=== PATIENT | male | born 1955 | race Caucasian/White ===

== ENCOUNTER 2018-11-13 15:32 | Inpatient (IN) | payer OTHER ==
[2018-11-13] MEDS ORDERED: Aspirin 325 MG TAB ONE (15:52)
[2018-11-13] MEDS ORDERED: Diltiazem 125 MG/25 ML ONE (15:52)
[2018-11-13 16:01] LABS: #Basophils 0.1 thou/uL (0.0-0.2); #Eosinphils 0.5 thou/uL (0.0-0.7); #Lymphocytes 1.5 thou/uL (1.20-3.40); #Monocytes 0.8 thou/uL (0.11-0.59); #Neutrophils 6.3 thou/uL (1.40-6.50); %Basophils 0.7 % (0.0-1.0); %Eosinophils 5.4 % (0.0-10.0); %Lymphocytes 15.9 % (21.0-51.0); %Monocytes 9.2 % (0.0-10.0); %Neutrophils 68.9 % (42.0-75.0); Hemoglobin 15.9 g/dL (14.0-18.0); Mean Corpuscular HGB CONC 32.7 g/dL (32.0-36.0); Mean Corpuscular Hemoglobin 29.8 pg (27.0-31.0); Mean Corpuscular Volume 91.1 fL (78.0-98.0); Platelet Count 294 thou/uL (130-400); RBC Distribution Width 13.7 % (11.5-14.5); Red Blood Cell (RBC) Count 5.34 mill/uL (4.70-6.10); White Blood Cell (WBC) Count 9.2 thou/uL (4.8-10.8)
--- NOTE | 2018-11-13 16:09 | RAD ---
Chest one view HISTORY: Chest pain. FINDINGS: No comparison. Cardiac silhouette is magnified by projection. Pulmonary vasculature is unre markable. Mediastinum is midline. No confluent airspace consolidation or evidence of pneumothorax. IMPRESSION: No active cardiopulmonary abnormalities are demonstrated.
[2018-11-13 16:22] LABS: ALT (SGPT) 26 U/L (8-55); AST (SGOT) 23 U/L (5-34); Alkaline Phosphatase 98 U/L (40-150); Anion Gap 14 mmol/L (10-20); BUN (Urea Nitrogen) 21 mg/dL (8.4-25.7); Bilirubin, Total 0.6 mg/dL (0.2-1.2); Calc. Creatinine Clearance 0 mL/min (70-130); Calcium 9.5 mg/dL (7.8-10.44); Carbon Dioxide 21 mmol/L (23-31); Chloride 106 mmol/L (98-107); Estimated GFR-MDRD 59; Globulin 3.4 g/dL (2.4-3.5); Glucose 153 mg/dL (80-115); Lipase 26 U/L (8-78); Magnesium 1.9 mg/dL (1.6-2.6); Potassium 4.4 mmol/L (3.5-5.1); Protein, Total 7.4 g/dL (5.8-8.1); Sodium 137 mmol/L (136-145)
[2018-11-13] MEDS ORDERED: Acetaminophen 500 MG TAB ONE (17:48)
[2018-11-13 18:29] LABS: INR-International Normal Ratio 2.2; Prothrombin Time 24.5 SEC (12.0-14.7)
[2018-11-13] MEDS ORDERED: Senokot S 8.6-50 MG TAB PO PRN (18:29)
[2018-11-13] MEDS ORDERED: HYDROcodone/Acetaminophen 5/325 mg Tablet PO PRN (18:29)
[2018-11-13] MEDS ORDERED: Acetaminophen 325 MG TAB PO PRN (18:29)
[2018-11-13 18:30] LABS: PTT 40.1 SEC (22.9-36.1)
[2018-11-13 19:21] LABS: Troponin I Less than 0.010 ng/mL (< 0.028)
[2018-11-13] MEDS ORDERED: Diltiazem 125 MG in Sodium Chloride 0.9% 100 ML IVPB SCH (20:15)
[2018-11-13 20:18] VITALS: BMI 31.4
[2018-11-13] MEDS: Famotidine 20 MG TAB PO SCH (20:45)
[2018-11-13 22:10] LABS: Troponin I 0.013 ng/mL (< 0.028)
--- NOTE | 2018-11-14 01:48 | HP ---
CHIEF COMPLAINT: Chest pain. HISTORY OF PRESENT ILLNESS: Mr. Santana is a very pleasant 62-year-old male who presented to the emergency room today after he has been noticing worsening chest pain over the last 3 days, reports most severe in the left upper chest, described as crushing. Reports some dyspnea on exertion. Also has had intermittent diaphoresis, palpitations. Denied anything exacerbated or relieved it. Does have a pertinent past medical history with angina, myocardial infarction x2. He has had 3 stents placed in 2018. Also pertinent is hypertension, hyperlipidemia, diabetes. The patient is on Coumadin and Plavix. During ED evaluation, the patient was found to be in atrial fibrillation with RVR, was given a bolus of diltiazem and subsequently placed on a Cardizem drip. Still has a variable rate anywhere from 90 to 140. The patient was subsequently admitted to the telemetry unit for further management. The patient was also given aspirin in the emergency room. PAST MEDICAL HISTORY: Angina, myocardial infarction x2, stent placement x3, hypothyroidism, diabetes, hypertension, elevated PSA. Reports that he has an appointment next week again with the urologist who is going to do a biopsy. States that at that point, he was supposed to get trend off his Coumadin and start Lovenox. PAST SURGICAL HISTORY: Cardiac stents x3. PSYCHIATRIC HISTORY: None. SOCIAL HISTORY: Drinks socially every week. Denies any drug use. Has no smoking history. REVIEW OF SYSTEMS: The patient reports chest pain. Reports diaphoresis. Reports palpitations. Reports shortness of breath. All other symptoms are reviewed and are negative unless mentioned in the HPI. PHYSICAL EXAMINATION: VITAL SIGNS: Blood pressure 120/78, pulse is 122, respirations 15, pulse ox is 97% on room air. Pulse, atrial fibrillation with RVR. CONSTITUTIONAL: He is alert and oriented to person, place, and time. He is nontoxic appearing. HEENT: Head is atraumatic and normocephalic. Eyes; eyelids are normal to inspection. Pupils equally round and reactive to light. ENT; mouth exam is normal. Mucous membranes are moist. NECK: Normal range of motion. Trachea is midline. RESPIRATORY/CHEST: Breath sounds are clear. No signs of respiratory distress. CARDIOVASCULAR: Tachycardic. Cardiac rhythm, atrial fibrillation with rapid ventricular response. ABDOMEN: Nontender. Bowel sounds are heard. BACK: Normal to inspection. Normal range of motion. EXTREMITIES: Upper extremity, normal range of motion. Normal to inspection. Motor strength is normal. Radial pulses are equal. Lower extremity, inspection is normal, normal range of motion. Motor strength is normal. Pedal pulses equal bilaterally. NEURO: The patient is oriented to person, place, and time. Speech is normal. SKIN: Warm and dry, normal in color. PSYCH: Has a normal affect. IMAGING DATA: EKG in the ER shows; 1. Atrial fibrillation with RVR, left anterior fascicular block. ST segments and T-waves are normal, rate per minute 167. 2. Normal sinus rhythm, beats per minute 93, premature atrial complexes, again left anterior fascicular block. 3. Shows atrial fibrillation with a rapid ventricular response, beats per minute 119 in bigeminy. Again, left anterior fascicular block. ST segments and T-waves are normal. Chest x-ray shows cardiomegaly. PERTINENT LABORATORY DATA: White blood cell count 9.2, hemoglobin 15.9, hematocrit 48.7, and platelet count is 294. PT is 24.5, INR is 2.2, and APTT is 40.1. Chemistry; sodium is 137, potassium 4.4, chloride 106, carbon dioxide is 21, gap is 14, BUN is 21, creatinine is 1.24, estimated GFR is 59, glucose is 153, calcium is 9.5, magnesium 1.9. Liver enzymes are unremarkable. BNP is 166. Troponins x3 are undetectable. Lipase is 26. ASSESSMENT AND PLAN: 1. Atrial fibrillation with rapid ventricular response and chest pain. We will continue the patient on a Cardizem drip and titrate. We will consult Cardiology. 2. Hypertension. We will continue home medication. We will trend. Add p.r.n. medication as needed. 3. Diabetes type 2. We will add a sliding scale insulin while hospitalized. We will restart home medications. Check Accu-Cheks a.c. and at bedtime. Chronic anticoagulation with aspirin, Plavix, Coumadin. We will check PT, INR daily. We will confer to Cardiology for assistance with continuation or medication regimen change. 4. Gastrointestinal prophylaxis will be started. 5. Hospital course will be dependent on clinical findings. Job ID: [id number]
[2018-11-14] MEDS ORDERED: Warfarin Sodium 2 MG TAB PO SCH ×2 (02:00→17:00)
[2018-11-14 05:06] LABS: INR-International Normal Ratio 2.2; PTT 42.4 SEC (22.9-36.1); Prothrombin Time 24.6 SEC (12.0-14.7)
[2018-11-14 05:13] LABS: #Basophils 0.1 thou/uL (0.0-0.2); #Eosinphils 0.4 thou/uL (0.0-0.7); #Lymphocytes 1.3 thou/uL (1.20-3.40); #Monocytes 0.8 thou/uL (0.11-0.59); #Neutrophils 5.4 thou/uL (1.40-6.50); %Basophils 0.9 % (0.0-1.0); %Eosinophils 5.4 % (0.0-10.0); %Lymphocytes 16.2 % (21.0-51.0); %Monocytes 9.9 % (0.0-10.0); %Neutrophils 67.7 % (42.0-75.0); Hemoglobin 14.6 g/dL (14.0-18.0); Mean Corpuscular HGB CONC 32.9 g/dL (32.0-36.0); Mean Corpuscular Hemoglobin 30.8 pg (27.0-31.0); Mean Corpuscular Volume 93.6 fL (78.0-98.0); Platelet Count 259 thou/uL (130-400); RBC Distribution Width 13.6 % (11.5-14.5); Red Blood Cell (RBC) Count 4.76 mill/uL (4.70-6.10); White Blood Cell (WBC) Count 7.9 thou/uL (4.8-10.8)
[2018-11-14 05:21] LABS: ALT (SGPT) 24 U/L (8-55); AST (SGOT) 17 U/L (5-34); Albumin 3.5 g/dL (3.4-4.8); Alkaline Phosphatase 86 U/L (40-150); Anion Gap 11 mmol/L (10-20); BUN (Urea Nitrogen) 18 mg/dL (8.4-25.7); Bilirubin, Total 0.8 mg/dL (0.2-1.2); Calc. Creatinine Clearance 142 mL/min (70-130); Calcium 8.6 mg/dL (7.8-10.44); Carbon Dioxide 23 mmol/L (23-31); Chloride 107 mmol/L (98-107); Estimated GFR-MDRD 82; Globulin 2.9 g/dL (2.4-3.5); Glucose 86 mg/dL (80-115); Potassium 3.8 mmol/L (3.5-5.1); Protein, Total 6.4 g/dL (5.8-8.1); Sodium 137 mmol/L (136-145)
[2018-11-14] MEDS ORDERED: COBAMAMIDE SL SCH (09:00)
[2018-11-14] MEDS ORDERED: CYANOCOBALAMIN SL SCH (09:00)
[2018-11-14 09:18] LABS: Hemoglobin 14.8 g/dL (14.0-18.0); Platelet Count 270 thou/uL (130-400)
[2018-11-14] MEDS: Aspirin 81 mg Enteric Coated Tablet PO SCH (09:41)
[2018-11-14] MEDS: Clopidogrel Bisulfate 75 MG TAB PO SCH (09:45)
[2018-11-14] MEDS: Famotidine 20 MG TAB PO SCH ×2 (09:45→21:00)
--- NOTE | 2018-11-14 15:44 | PDOC.PN ---
- Subjective Encounter Start Date: 11/14/18 Encounter Start Time: 15:42 Mr. Santana was seen in follow-up of chest pain and new onset AFIB. He says he feels much better. He denies chest pain , shortness of breath, or any dizziness or lightheadedness. He wants to go home and see his own Tank Bottom Assembler. - Objective MAR Reviewed: Yes Vital Signs & Weight: Vital Signs (12 hours) Temp Pulse Resp BP Pulse Ox 11/14/18 12:00 97.5 F L 58 L 16 99/67 11/14/18 08:00 96.8 F L 94 18 133/78 99 11/14/18 07:00 99 11/14/18 04:00 97.4 F L 60 18 104/57 L 93 L Weight Weight 272 lb 8 oz I&O: 11/13/18 11/14/18 11/15/18 06:59 06:59 06:59 Intake Total 525 Output Total 800 Balance -275 Result Diagrams: 11/14/18 08:58 11/14/18 04:05 Additional Labs: Accuchecks 11/14/18 11/14/18 11/13/18 11:40 05:16 20:09 POC Glucose 139 H 96 109 Phys Exam - Physical Examination HEENT: PERRLA Respiratory: no wheezing, no rales, no rhonchi, clear to auscultation bilateral Cardiovascular: no significant murmur, no rub, irregular Gastrointestinal: soft, non-tender, no distention, positive bowel sounds Musculoskeletal: no edema, pulses present Dx/Plan (1) New onset a-fib Code(s): I48.91 - UNSPECIFIED ATRIAL FIBRILLATION Status: Acute (2) Coronary artery disease Code(s): I25.10 - ATHSCL HEART DISEASE OF [place] CORONARY ARTERY W/O ANG PCTRS Status: Chronic (3) Hypertension Code(s): I10 - ESSENTIAL (PRIMARY) HYPERTENSION Status: Chronic (4) Diabetes mellitus type 2 in obese Code(s): E11.69 - TYPE 2 DIABETES MELLITUS WITH OTHER SPECIFIED COMPLICATION; E66.9 - OBESITY, UNSPECIFIED Status: Chronic - Plan * New Onset AFIB- his heart rate is controlled but variable, but he remains in AFIB. He is already on coumadin and therapeutic due to a previous DVT. * Continue Metoprolol, and await Cardiology input * DM- blood glucose is stable * HTN- blood pressure is low normal
[2018-11-14] MEDS ORDERED: Atorvastatin Calcium 40 MG TAB PO SCH (21:00)
--- NOTE | 2018-11-14 23:47 | CON ---
DATE OF CONSULTATION: 11/14/2018 INDICATION FOR CONSULTATION: This is a 62-year-old gentleman with history of coronary artery disease, who reported to the emergency room complaining of chest pain, shortness of breath and was found to have what was thought to be atrial fibrillation on my evaluation. The EKG appears that the patient was in sinus rhythm with frequent PACs and has 1 short run at least documented on the EKG of what appeared to be atrial tachycardia. I do not see any clear indication of any atrial fibrillation. Since being on the floor, he has had no atrial fibrillation. He has continued to have a sinus rhythm with frequent PACs. He does not have any previous history of atrial fibrillation in the past. He is on Coumadin, however, for history of DVTs. He is also on Plavix and aspirin due to coronary artery disease for which he has received recent stents. He has been doing quite well for the last several days, but he has complained of some dizziness occasionally. He has had some chest discomfort and also he has some chest tightness which he describes and also some neck pain and jaw pain with some shortness of breath. He said this is somewhat different than the pain he had in the past with his previous myocardial infarction. 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 Then again in April 2018, he was seen in [place] by the long wall mining machine tender, so he continues to see there and was found to have in-stent thrombosis and underwent repeat angioplasty and he had 2 stents placed in [place] at the same vessel and then had a third stent placed in [place]. He also had a transesophageal echocardiogram performed in August 2018 and was told that his left ventricular systolic function had remained stable. I do not have those records, however. At this time, he denies any significant chest discomfort and was questioning when he could go home. He plans to follow up with his long wall mining machine tender in [place]. His heart rate has been ranging anywhere from the between 90s to 130s, but appears to be as noted sinus rhythm with frequent PACs and an episode of atrial tachycardia. At this time, he remains asymptomatic. His cardiac enzymes are negative. EKG did not show any acute ST-segment changes. He does have a left anterior fascicular block and decreased R-wave progression in V1 through V3, which may be associated with previous myocardial infarction. PAST MEDICAL HISTORY: Significant for coronary artery disease, myocardial infarction, angioplasty and stent placed in 2017 and again in 2018 reportedly to the left anterior descending artery on both events, hypothyroidism, diabetes. He has prostate hypertrophy with elevated PSA. He has hypertension. He has history of tobacco abuse. He still smokes 4 to 5 cigarettes a week. He has been drinking increased tea as well as some alcohol recently which may have triggered the irregular heart rate, palpitations. He also has been having at least 1 or 2 drinks a day for the last couple of weeks. He denies any other significant stressful situations, but does continue to smoke. REVIEW OF SYSTEMS: 12-point review of systems is unremarkable except what is noted in the history of present illness. He has been told that he does have a right lower lobe abnormality on the chest x-ray and is being followed. He has also had a DVT in the right lower extremity, for which he has continued on Coumadin since he had a repeat DVT in the same leg. PRESENT MEDICATIONS: He was given diltiazem, this has since been discontinued; he was on aspirin 81 mg a day; atorvastatin 40 mg a day; Plavix 75 mg a day; Pepcid 20 mg b.i.d.; metoprolol succinate 25 mg daily; pantoprazole 40 mg daily; he was taking his Coumadin to keep an INR between 2 and 3, the INR was stable; Tylenol as needed; hydrocodone as needed. He also was taking fish oil, omega-3 as well as he was taking Symbicort. He was on Jardiance, the plan is to stop taking this medicine due to the expense. He was on repaglinide 2 mg tablets one 3 times a day. ALLERGIES: NONE. LABORATORY DATA: Shows his INR to be 2.2. His sodium is 137, potassium 4.4. Glucose was 153, repeat was 109. BNP was 166. Cardiac enzymes are negative x3. Hemoglobin is 14.8, WBC is 7.9, platelet count is 270,000. IMPRESSION: 1. A 62-year-old gentleman with a history of chest pain and coronary artery disease. Enzymes are negative. The patient has been having discomfort for several days. This maybe related to palpitations. It is possible he did have some atrial fibrillation, but I do not see that documentation. At this time, I would suggest we start him on a beta miky, maybe increase the dose and could add low dose of diltiazem if he had atrial fibrillation, converted back to sinus rhythm and he has remained in sinus rhythm. He wishes to follow up with his long wall mining machine tender in [place]. If he remains stable, no further chest pain and no further arrhythmias; then I would suggest he follow up with his long wall mining machine tender in the next week in [place] should he have any further events while he is here, and I would suggest he undergo a repeat cardiac catheterization as a definitive tool to rule out evidence of in-stent restenoses yet again. He apparently did not have any other coronary artery disease in any other vessels as per his history or at least as what he tells me. He only has one vessel that was involved and that was the left anterior descending artery. 2. History of deep venous thrombosis. He is to continue on the Coumadin until he needs to undergo a surgical procedure for his prostate and apparently he need to undergo a biopsy. He can certainly be transitioned over to Lovenox in the interim and then go back to the Coumadin once the procedure is over and would have a bridge with Lovenox until he is able to have anticoagulation therapeutic again. 3. History of diabetes. Blood sugar is reasonably controlled. We will continue the same medications unless he speaks with his storeroom keeper about changing some of the more expensive medications. 4. History of deep venous thrombosis. He will continue on his Coumadin as noted above. 5. Dyslipidemia. He will continue with his Lipitor. 6. History of tobacco abuse. I suggest that he stop smoking altogether. 7. History of alcohol use at this time. He needs also to stop his alcohol intake as well as decrease on his caffeine intake from tea. He has been drinking 4 to 5 glasses of tea a day and apparently this is home brewed tea and is somewhat stronger than the usual uinu-aww-jkffliw tea or the restaurant-type tea. 8. Benign prostatic hypertrophy with an elevated PSA. He is to see his urologist in the near future for a biopsy. At this time, from a cardiac standpoint, he appears to be relatively stable, so I would suggest we just continue his same medications, but also add diltiazem in order to prevent further arrhythmias. He appeared to have frequent PACs and I did notice a short run of what appeared to be atrial tachycardia. He may have had one episode of atrial fibrillation while on telemetry. I do see a rhythm strip. It does appear to be atrial fibrillation of approximately 120 on November 14, which converted back to sinus rhythm. I did explain to him that one of reasons he could be having atrial fibrillation was that it could be due to underlying coronary artery disease, and he will need to see his long wall mining machine tender as soon as possible and may need to either undergo stress testing or repeat cardiac catheterization, most likely repeat cardiac catheterization would be the best method to determine whether or not he has had any underlying ischemia as a possible cause of the atrial fibrillation. We will be more than happy to continue to follow the patient with you, but if he remains stable overnight, then he certainly could follow up with his long wall mining machine tender in [place] as this is what he wishes to do. Job ID: [id number]
[2018-11-15 05:39] LABS: #Basophils 0.1 thou/uL (0.0-0.2); #Eosinphils 0.5 thou/uL (0.0-0.7); #Lymphocytes 1.2 thou/uL (1.20-3.40); #Monocytes 0.8 thou/uL (0.11-0.59); #Neutrophils 5.6 thou/uL (1.40-6.50); %Basophils 0.9 % (0.0-1.0); %Eosinophils 6.2 % (0.0-10.0); %Lymphocytes 14.5 % (21.0-51.0); %Monocytes 9.8 % (0.0-10.0); %Neutrophils 68.7 % (42.0-75.0); Hemoglobin 14.8 g/dL (14.0-18.0); Mean Corpuscular HGB CONC 32.9 g/dL (32.0-36.0); Mean Corpuscular Hemoglobin 30.9 pg (27.0-31.0); Mean Corpuscular Volume 93.8 fL (78.0-98.0); Mean Platelet Volume 7.2 fL (7.4-10.4); Platelet Count 267 thou/uL (130-400); RBC Distribution Width 13.7 % (11.5-14.5); White Blood Cell (WBC) Count 8.2 thou/uL (4.8-10.8)
[2018-11-15 05:44] LABS: INR-International Normal Ratio 2.4; PTT 43.1 SEC (22.9-36.1); Prothrombin Time 26.3 SEC (12.0-14.7)
[2018-11-15 05:53] LABS: ALT (SGPT) 19 U/L (8-55); AST (SGOT) 16 U/L (5-34); Albumin 3.6 g/dL (3.4-4.8); Alkaline Phosphatase 89 U/L (40-150); Anion Gap 10 mmol/L (10-20); BUN (Urea Nitrogen) 19 mg/dL (8.4-25.7); Bilirubin, Total 0.5 mg/dL (0.2-1.2); Calc. Creatinine Clearance 134 mL/min (70-130); Calcium 8.9 mg/dL (7.8-10.44); Carbon Dioxide 25 mmol/L (23-31); Chloride 106 mmol/L (98-107); Estimated GFR-MDRD 76; Globulin 3.1 g/dL (2.4-3.5); Glucose 99 mg/dL (80-115); Potassium 3.9 mmol/L (3.5-5.1); Protein, Total 6.7 g/dL (5.8-8.1); Sodium 137 mmol/L (136-145)
[2018-11-15] MEDS: Famotidine 20 MG TAB PO SCH (08:47)
[2018-11-15] MEDS: Aspirin 81 mg Enteric Coated Tablet PO SCH (08:48)
[2018-11-15] MEDS: Clopidogrel Bisulfate 75 MG TAB PO SCH (08:48)
--- NOTE | 2018-11-15 09:44 | PDOC.PN ---
- Subjective Encounter Start Date: 11/15/18 Encounter Start Time: 11:20 Subjective: Patient with no more chest pain. No significant runs of Afib overnight, -: just a few nonsustained PACs. Has appointment with his [employer] -: gear inspector scheduled for tomorrow. - Objective MAR Reviewed: Yes Vital Signs & Weight: Vital Signs (12 hours) Temp Pulse Resp BP Pulse Ox 11/15/18 08:00 97.2 F L 95 18 113/70 95 11/15/18 04:00 98.9 F 64 18 124/68 94 L Weight Weight 272 lb 8 oz I&O: 11/14/18 11/15/18 11/16/18 06:59 06:59 06:59 Intake Total 525 1320 Output Total 800 650 Balance -275 670 Result Diagrams: 11/15/18 04:38 11/15/18 04:38 Additional Labs: Accuchecks 11/15/18 11/14/18 11/14/18 05:49 21:06 11:40 POC Glucose 95 140 H 139 H Phys Exam - Physical Examination Constitutional: NAD HEENT: moist MMs Respiratory: no wheezing, no rales, no rhonchi, clear to auscultation bilateral Cardiovascular: RRR, no significant murmur Gastrointestinal: soft, positive bowel sounds Neurological: non-focal, moves all 4 limbs Psychiatric: normal affect, A&O x 3 Dx/Plan (1) Chest pain Code(s): R07.9 - CHEST PAIN, UNSPECIFIED Status: Resolved Comment: likely secondary to tachycardia, now resolved (2) New onset a-fib Code(s): I48.91 - UNSPECIFIED ATRIAL FIBRILLATION Status: Acute Comment: lots of PACs that have resolved, one run of Afib on tele but none since then, diltiazem added by Dr. Gomes (3) Coronary artery disease Code(s): I25.10 - ATHSCL HEART DISEASE OF [place] CORONARY ARTERY W/O ANG PCTRS Status: Chronic (4) Diabetes mellitus type 2 in obese Code(s): E11.69 - TYPE 2 DIABETES MELLITUS WITH OTHER SPECIFIED COMPLICATION; E66.9 - OBESITY, UNSPECIFIED Status: Chronic (5) Hypertension Code(s): I10 - ESSENTIAL (PRIMARY) HYPERTENSION Status: Chronic (6) Hx of deep venous thrombosis Code(s): Z86.772 - PERSONAL HISTORY OF OTHER VENOUS THROMBOSIS AND EMBOLISM Status: Chronic Comment: On Coumadin - Plan cont current plan of care Will d/c home if ok with Dr. Gomes for followup tomorrow with his -: gear inspector. * . - Discharge Day Encounter end time: 11:40
--- NOTE | 2018-11-15 12:23 | PDOC.CTH ---
Cardiology Progress Note - Subjective The pt seen and examined. No overnight events. No cardiac complaints. - Objective Vital Signs Temp Pulse Resp BP Pulse Ox 11/15/18 08:00 97.2 F L 95 18 113/70 95 11/15/18 04:00 98.9 F 64 18 124/68 94 L Weight 272 lb 8 oz 11/14/18 11/15/18 11/16/18 06:59 06:59 06:59 Intake Total 525 1320 Output Total 800 650 Balance -275 670 - Physical Examination General/Neuro: alert & oriented x3 Neck: no JVD present Lungs: CTA Heart: RRR Abdomen: soft Extremities: other: (No edema) - Telemetry Telemetry Rhythm: SR - Labs Result Diagrams: 11/15/18 04:38 11/15/18 04:38 Troponin/CKMB Troponin I 0.013 ng/mL (< 0.028) 11/13/18 21:37 - Assessment/Plan 1. New onset Afib with RVR - remains in SR since 0100 on 11/14/2018; On diltiazem, bblocker, and Coumadin; The pt will f/u with his erosion control specialist in [place], [place]. 2. CAD with hx of stent in 2017 and 2018 - stable; on Bblocker, ASA, Plavix, and statin 3. HTN - stable 4. Hyperlipidemia - on statin 5. DM type 2 - 6. Hypothyroidism - 7. PSH - 8. Hx of DVT - On Coumadin with INR 2.2-3.2 9. Tobacco/ETOH abuse - Tobacco/ETOH cessation education given to the pt. MAR reviewed * From Cardiac standpoint, the pt is stable to d/c home. The pt will f/u with his Conference Service Coordinator tomorrow. Pt. seen and eval. by me. Feels good. No complaints. Chest clear. RRR. I agree with the A/P by the AND DRYING SUPERVISOR COOKING CASING. He prefers to f/u with the erosion control specialist in [place]. . Review of Systems - Review of Systems Constitutional: reports: no symptoms reported EENTM: reports: no symptoms reported Respiratory: reports: no symptoms reported Cardiac (ROS): reports: no symptoms reported ABD/GI: reports: no symptoms reported : reports: no symptoms reported Musculoskeletal: reports: no symptoms reported
[2018-11-15 15:45] VITALS: BP 116/72; TEMP 97.9
[2018-11-15] MEDS ORDERED: Warfarin Sodium 2 MG TAB PO SCH (17:00)
--- NOTE | 2018-11-16 02:40 | DIS ---
DATE OF ADMISSION: 11/13/2018 DATE OF DISCHARGE: 11/15/2018 PRIMARY CARE PHYSICIAN: Zehra Simpson. PRIMARY CUFFING MACHINE OPERATOR: Dr. Christian in [place]. REASON FOR ADMISSION: Chest pain and atrial fibrillation. DIAGNOSES AT DISCHARGE: 1. Chest pain, resolved. 2. Paroxysmal atrial fibrillation, back in normal sinus rhythm. 3. Coronary artery disease. 4. Diabetes mellitus type 2. 5. Hypertension. 6. History of deep venous thrombosis, on Coumadin. PROCEDURES: None. CONSULTATIONS: Cardiology, Dr. Gomes. SUMMARY OF HOSPITAL COURSE: This is a 62-year-old white male with a known history of coronary artery disease with multiple LAD stents, also with some possible history of a very limited atrial fibrillation just a few seconds run on a conveyor monitor done about a month ago by his primary csm consultant in [place]. The patient presented to the emergency room complaining of chest pain over the last 3 days, crushing in nature. He was also found to be have some atrial fibrillation, though quickly moved into normal sinus rhythm with intermittent PACs in the emergency room and was given diltiazem and eventually placed on Cardizem drip. The patient was observed in the hospital. His Cardizem drip was able to be discontinued and he was switched to oral Cardizem. Dr. Gomes did consult. She noted mostly PACs with one short run in atrial fibrillation Recommended continuing his Coumadin and continuing the oral Cardizem. The patient had negative cardiac markers. Over the last day of hospitalization, he had just occasional PACs with no more runs of atrial fibrillation and was asymptomatic, so he is being discharged home. He does have an appointment with his csm consultant scheduled for tomorrow. DISCHARGE MANAGEMENT: Discharged home. FOLLOWUP: Follow up with Dr. Christian tomorrow at 10 a.m. as scheduled. ACTIVITY: As tolerated. DIET: Diabetic, low-sodium diet. DISCHARGE MEDICATIONS: 1. Cardizem 180 mg daily, 30 capsules dispensed. 2. Continue aspirin 81 mg daily. 3. Atorvastatin 40 mg at night. 4. Clopidogrel 75 mg daily. 5. Metoprolol succinate 25 mg daily. 6. Protonix 40 mg daily. 7. Warfarin 8 mg daily. 8. Symbicort 2 puffs daily. 9. Vitamin B12/ 5000 mcg sublingual daily. 10. Jardiance 25 mg daily. 11. Fish oil 1200 mg twice a day. 12. Metformin 1000 mg twice a day. 13. Repaglinide 2 mg 3 times a day. Arranging the details of this discharge took 35 minutes. Job ID: [id number]
== END 2018-11-15 15:45 | disposition home or self-care (01) | DRG 310 ==
LOC: ERS 15:32 → 2NO 18:17
PROVIDERS: ADMIT Internal Medicine; ATTEND Internal Medicine
DX: I48.0 Paroxysmal atrial fibrillation (principal); I25.2 Old myocardial infarction; Z95.5 Presence of coronary angioplasty implant and graft; E78.5 Hyperlipidemia, unspecified; E03.9 Hypothyroidism, unspecified; I10 Essential (primary) hypertension; I25.10 Atherosclerotic heart disease of native coronary artery without angina pectoris; E11.69 Type 2 diabetes mellitus with other specified complication; N40.0 Benign prostatic hyperplasia without lower urinary tract symptoms; E66.9 Obesity, unspecified; F17.290 Nicotine dependence, other tobacco product, uncomplicated; Z79.01 Long term (current) use of anticoagulants; Z86.718 Personal history of other venous thrombosis and embolism; Z68.31 Body mass index [BMI] 31.0-31.9, adult; Z79.82 Long term (current) use of aspirin
CPT/HCPCS: 36415; 36416; 71045; 80053; 83690; 83735; 83880; 84484; 85025; 85610; 85730; 93005; J3490

== ENCOUNTER 2019-10-13 11:33 | Emergency (ER) | payer SELFPAY, OTHER ==
--- NOTE | 2019-10-13 12:49 | RAD ---
Frontal and lateral imaging of the right tibia/fibula: 10/13/2019 COMPARISON: None HISTORY: Right lower extremity injury, tibial plateau tenderness FINDINGS: No displaced fracture or evidence of dislocation. Soft tissue calcification overlies the mi d calf medially. There is a suggestion of soft tissue edema within the right calf as well. Clinical correlation is required. The right knee joint is not fully assessed. If there are symptoms referable to the right knee, dedica bakari 4 view examination of the right knee advised. IMPRESSION: No displaced fracture or evidence of dislocation is seen. Soft tissue swelling of the rig ht calf. Please see above discussion.
--- NOTE | 2019-10-13 13:02 | ULT ---
RIGHT LOWER EXTREMITY VENOUS DUPLEX ULTRASOUND INCLUDING COLOR AND SPECTRAL DOPPLER IMAGING: HISTORY: Right leg swelling and pain and redness with warmth. History of prior DVT in right leg. The patient is on blood thinners. FINDINGS: Exam is performed from groin to ankle including visualized greater saphenous, common femoral, superfi cial femoral, profunda femoral, popliteal, trifurcation, and posterior tibial vein regions. There is evidence for minimal intraluminal nonobstructing thrombus at the level of the popliteal vein which has more the appearance of old incompletely obstructing thrombus. 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 The remainder of the right lower extremity deep venous system is unremarkable. IMPRESSION: Minimal nonobstructing intraluminal thrombus in the right popliteal vein which has more the appearanc e of old residual disease, particularly given the history of prior deep vein thrombosis. 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 If additional imaging is felt to be needed in regards to the popliteal artery aneurysm, a followup no nemergent CT angiogram of the right lower extremity be of benefit. Findings were discussed with nurse Lange at 12:24 p.m., Dr. Sheppard could not come to the phone. CODE CR POS: [email or web address]
== END 2019-10-13 13:40 | disposition home or self-care (01) ==
LOC: ERS 11:33
DX: I72.4 Aneurysm of artery of lower extremity (principal); I49.9 Cardiac arrhythmia, unspecified; I48.91 Unspecified atrial fibrillation; I25.2 Old myocardial infarction; E11.9 Type 2 diabetes mellitus without complications; I10 Essential (primary) hypertension; Z86.718 Personal history of other venous thrombosis and embolism; Z79.899 Other long term (current) drug therapy; Z79.82 Long term (current) use of aspirin; Z79.84 Long term (current) use of oral hypoglycemic drugs; Z79.01 Long term (current) use of anticoagulants

== ENCOUNTER 2019-10-21 13:36 | Observation (INO) | payer SELFPAY, OTHER ==
[~2019-10-21 13:36] MED LIST: Iopamidol 370 76% 100 ML VIAL ONE
[2019-10-21 14:22] LABS: #Basophils 0.1 thou/uL (0.0-0.2); #Eosinphils 0.2 thou/uL (0.0-0.7); #Lymphocytes 0.9 thou/uL (1.20-3.40); #Monocytes 0.6 thou/uL (0.11-0.59); #Neutrophils 5.5 thou/uL (1.40-6.50); %Basophils 0.9 % (0.0-1.0); %Eosinophils 2.8 % (0.0-10.0); %Lymphocytes 12.1 % (21.0-51.0); %Monocytes 8.8 % (0.0-10.0); %Neutrophils 75.4 % (42.0-75.0); Hemoglobin 13.8 g/dL (14.0-18.0); Mean Corpuscular HGB CONC 32.4 g/dL (32.0-36.0); Mean Corpuscular Hemoglobin 30.6 pg (27.0-31.0); Mean Corpuscular Volume 94.5 fL (78.0-98.0); Mean Platelet Volume 7.1 fL (7.4-10.4); Platelet Count 370 thou/uL (130-400); RBC Distribution Width 13.1 % (11.5-14.5); Red Blood Cell (RBC) Count 4.49 mill/uL (4.70-6.10); White Blood Cell (WBC) Count 7.2 thou/uL (4.8-10.8)
[2019-10-21 14:33] LABS: Prothrombin Time 43.4 SEC (12.0-14.7)
[2019-10-21 14:35] LABS: INR-International Normal Ratio 4.6
[2019-10-21 14:45] LABS: ALT (SGPT) 29 U/L (8-55); AST (SGOT) 19 U/L (5-34); Albumin 3.6 g/dL (3.4-4.8); Alkaline Phosphatase 88 U/L (40-110); Anion Gap 16 mmol/L (10-20); BUN (Urea Nitrogen) 32 mg/dL (8.4-25.7); Bilirubin, Total 0.8 mg/dL (0.2-1.2); Calc. Creatinine Clearance 0 mL/min (70-130); Calcium 8.9 mg/dL (7.8-10.44); Carbon Dioxide 19 mmol/L (23-31); Chloride 107 mmol/L (98-107); Estimated GFR-MDRD 51; Globulin 2.9 g/dL (2.4-3.5); Glucose 181 mg/dL (80-115); Magnesium 2.2 mg/dL (1.6-2.6); Potassium 4.7 mmol/L (3.5-5.1); Protein, Total 6.5 g/dL (5.8-8.1); Sodium 137 mmol/L (136-145)
--- NOTE | 2019-10-21 14:53 | RAD ---
PORTABLE CHEST 1 VIEW: DATE: 10/21/2019. TIME: 2:34 PM. HISTORY: Chest pain and atrial fibrillation. FINDINGS/IMPRESSION: Comparison is made with the exam of 11/13/2018. The heart size is normal. There is a suggestion of a right small pleural effusion with increased [place] in the right lung base. No pneumothoraces or rush pulmonary edema are seen. POS: [facility]
--- NOTE | 2019-10-21 15:30 | CT ---
CT PULMONARY ANGIOGRAM WITH IV CONTRAST AND 3D POSTPROCESSING: HISTORY: Chest pain with atrial fibrillation. FINDINGS: There is good contrast opacification of the pulmonary arterial vasculature without filling defects to suggest pulmonary embolism. There are vascular calcifications without evidence of aneurysmal dilata tion of the thoracic aorta. A tiny left and a moderate right pleural effusion are seen. There is a moderate-sized pericardial effusion. No pneumothoraces or lung masses are identified. There is a ca lcified granuloma of the left lung base. There is infiltrate/atelectatic change adjacent to the righ t pleural effusion. There are degenerative changes in the spine. Upper abdominal tomograms demonstr ate ascites. IMPRESSION: 1. No CT evidence of pulmonary embolism. 2. Pericardial and right pleural effusions. 3. Ascites. POS: TPC
[2019-10-21 19:11] LABS: Troponin I Less than 0.010 ng/mL (< 0.028)
[2019-10-21] MEDS ORDERED: Acetaminophen 325 MG TAB PO PRN (19:45)
[2019-10-21] MEDS ORDERED: HYDROcodone/Acetaminophen 5/325 mg Tablet PO PRN ×2 (19:45)
[2019-10-21] MEDS ORDERED: Ondansetron ODT 4 MG TAB SL PRN (19:45)
[2019-10-21] MEDS ORDERED: Sodium Chloride 0.9% 1,000 ML IV SCH (19:45)
[2019-10-21] MEDS ORDERED: Ondansetron PF 4 MG/2 ML Vial IVP PRN (19:45)
[2019-10-21] MEDS ORDERED: Dextrose 50% Abboject 50 ML SYRINGE SLOW IVP PRN (21:45)
[2019-10-21] MEDS ORDERED: HumaLOG 300 UNITS/3 ML VIAL SC PRN ×2 (21:45)
[2019-10-21] MEDS ORDERED: Dextrose 5% in Water 1,000 ML IV PRN (21:45)
[2019-10-21 22:31] LABS: Troponin I Less than 0.010 ng/mL (< 0.028)
--- NOTE | 2019-10-22 01:04 | PDOC.HHP ---
Hospitalist HPI - History of Present Illness shortness of breath History of Present Illness: 63yo M w/ MHx of coronary artery disease, myocardial infarction, angioplasty and stent placement in 2017 and again in 2018 reportedly to the left anterior descending artery on both events, DVT, hypothyroidism, and diabetes presents with shortness of breath. Per patient, has had progressively worsening shortness of breath over the past week. three days ago, started developing substernal chest pressure at rest. Shortness of breath progressively worsened and chest pressure became constant and persistent, so called EMS and was brought to the ED. on encounter, laying comfortbably in bed and has no complaints. Endorses orthopnea and lower extremity edema despite being adherent to mediations. Denies fatigue, presyncope, syncope, nasal congestion, facial pain, chest pain or pressure, pleuritic pain, cough, wheezing, hematochezia, melena, hematuria, dysuria, burninig on urination, sick contacts, recent travel. ED Course: In the ED, was initially in paroxysmal SVT but during examination spontaneously converted to sinus rhythm. CTPE was negative for PE but showed moderate sized pericardial effusion. The patient was admitted to the Telemetry floor for further management. Hospitalist ROS - Review of Systems Constitutional: reports: weakness, malaise. denies: fever, chills, sweats, other Respiratory: reports: shortness of breath, SOB with excertion. denies: cough, dry, hemoptysis, pleuritic pain, sputum, wheezing, other Cardiovascular: reports: chest pain, orthopnea, edema. denies: palpitations, paroxysmal noc. dyspnea, light headedness Gastrointestinal: denies: nausea, vomiting, abdominal pain, diarrhea, melena, hematochezia Genitourinary: denies: dysuria, frequency, hematuria Neurological: denies: weakness, numbness, incoordination Hospitalist History - Past Medical History Cardiac: reports: AFIB, CAD, HTN, MA. denies: CHF Pulmonary: reports: heart attack, high cholesterol, hypertension. denies: CVA/ TIA/stroke, COPD, lung disease Gastrointestinal: denies: GI bleed Endocrine: reports: Hypothyroidism - Past Surgical History Other Surgical History: PCI with stent placement - Family History Family History: reports: cancer (patient claims he has prostate cancer however may be confusing with BPH.) - Social History Smoking Status: Former smoker Alcohol: reports: None Drugs: reports: none Living Situation: With Family - Exam General Appearance: NAD, awake alert Neck: no JVD Heart: RRR, no murmur, no gallops, no rubs Respiratory: no wheezes, no rales, no ronchi Respiratory - other findings: mild bilateral lower field inspiratory rales Gastrointestinal: soft, non-tender, non-distended, normal bowel sounds Extremities: 2+ LE edema Extremities - other findings: R > L to knee level Neurological: cranial nerve grossly intact, no focal deficits, no new deficit. negative: facial droop Psychiatric: normal affect, normal behavior, A&O x 3 Hospitalist Results - Labs Result Diagrams: 10/21/19 14:00 10/21/19 14:00 Lab results: WBC 7.2 thou/uL (4.8-10.8) 10/21/19 14:00 Hgb 13.8 g/dL (14.0-18.0) L 10/21/19 14:00 Hct 42.5 % (42.0-52.0) 10/21/19 14:00 MCV 94.5 fL (78.0-98.0) 10/21/19 14:00 Plt Count 370 thou/uL (130-400) 10/21/19 14:00 Neutrophils % 75.4 % (42.0-75.0) H 10/21/19 14:00 Sodium 137 mmol/L (136-145) 10/21/19 14:00 Potassium 4.7 mmol/L (3.5-5.1) 10/21/19 14:00 Chloride 107 mmol/L (98-107) 10/21/19 14:00 Carbon Dioxide 19 mmol/L (23-31) L 10/21/19 14:00 BUN 32 mg/dL (8.4-25.7) H 10/21/19 14:00 Creatinine 1.41 mg/dL (0.7-1.3) H 10/21/19 14:00 Glucose 181 mg/dL (80-115) H 10/21/19 14:00 Calcium 8.9 mg/dL (7.8-10.44) 10/21/19 14:00 Total Bilirubin 0.8 mg/dL (0.2-1.2) 10/21/19 14:00 AST 19 U/L (5-34) 10/21/19 14:00 ALT 29 U/L (8-55) 10/21/19 14:00 Alkaline Phosphatase 88 U/L (40-110) 10/21/19 14:00 Troponin I Less than 0.010 ng/mL (< 0.028) 10/21/19 21:59 B-Natriuretic Peptide 96.2 pg/mL (0-100) 10/21/19 14:00 Serum Total Protein 6.5 g/dL (5.8-8.1) 10/21/19 14:00 Albumin 3.6 g/dL (3.4-4.8) 10/21/19 14:00 - EKG Interpretation EKG: sinus rhythm with no signs of ischemia - Radiology Interpretation CT scan - chest Status: report reviewed by in Hospitalist H&P A/P - Problem (1) Chest pain Code(s): R07.9 - CHEST PAIN, UNSPECIFIED Status: Resolved (2) Shortness of breath Code(s): R06.02 - SHORTNESS OF BREATH Status: Acute (3) Paroxysmal atrial fibrillation Code(s): I48.0 - PAROXYSMAL ATRIAL FIBRILLATION Status: Acute (4) Pericardial effusion Code(s): I31.3 - PERICARDIAL EFFUSION (NONINFLAMMATORY) Status: Acute (5) Coronary artery disease Code(s): I25.10 - ATHSCL HEART DISEASE OF [place] CORONARY ARTERY W/O ANG PCTRS Status: Chronic (6) Diabetes mellitus type 2 in obese Code(s): E11.69 - TYPE 2 DIABETES MELLITUS WITH OTHER SPECIFIED COMPLICATION; E66.9 - OBESITY, UNSPECIFIED Status: Chronic (7) Hx of deep venous thrombosis Code(s): Z86.718 - PERSONAL HISTORY OF OTHER VENOUS THROMBOSIS AND EMBOLISM Status: Chronic (8) Hypertension Code(s): I10 - ESSENTIAL (PRIMARY) HYPERTENSION Status: Chronic (9) Supratherapeutic INR Code(s): R79.1 - ABNORMAL COAGULATION PROFILE Status: Acute - Plan Plan: #chest pain #shortness of breath -atypical chest pain (substernal pressure but not precipitated by exertion and relieved by rest) -EKG showing no acute ischemia -trop x 3 -ve -HEART score 3 -[facility] in [place] -shortness of breath likely a result of arrhythmia-induced CHF considering prompt improvement in breathing and ssaturation in ED after providing diuresis -lasix IV bid -oxygen > 92% #paroxysmal a fib #history of DVT #supratherapeutic INR -on warfarin; INR 4.6 -CTPE and LE doppler -ve -hold warfarin; start home meds for afib -on reaching goal of 2-3, can restart at lower dose, provide warfarin consumption education, follow up with warfarin clinic #pericardial effusion -per patient, never had effusion however poor historian -may be related to shortness of breath since can be first symptom of tamponade prior to HD instability -echo to establish effusion and assess hemodynamic relevance #T2DM -sliding scale; well controlled #HTN -start home meds Full code DVT PPx not indicated; will restart warfarin on reaching therapeutic goal GI PPx no Ix ELOS: 1 midnight; admit to observation
[2019-10-22 01:47] VITALS: BMI 34.2
[2019-10-22 05:13] LABS: Prothrombin Time 40.6 SEC (12.0-14.7)
[2019-10-22 05:29] LABS: INR-International Normal Ratio 4.3
[2019-10-22 05:31] LABS: Anion Gap 17 mmol/L (10-20); BUN (Urea Nitrogen) 34 mg/dL (8.4-25.7); Calc. Creatinine Clearance 114 mL/min (70-130); Calcium 8.6 mg/dL (7.8-10.44); Carbon Dioxide 18 mmol/L (23-31); Chloride 106 mmol/L (98-107); Estimated GFR-MDRD 60; Glucose 141 mg/dL (80-115); Magnesium 2.5 mg/dL (1.6-2.6); Potassium 4.6 mmol/L (3.5-5.1); Sodium 136 mmol/L (136-145)
[2019-10-22] MEDS ORDERED: Furosemide 40 MG/4 ML VIAL SLOW IVP SCH (06:00)
[2019-10-22] MEDS: Furosemide 20 MG/2 ML VIAL SLOW IVP SCH ×2 (06:38→14:41)
[2019-10-22] MEDS: Mometasone 200 MCG/Formoterol 5 MCG 120 PUFF INHALER INH SCH ×2 (07:40→18:35)
[2019-10-22] MEDS ORDERED: Fish Oil 1,000 MG CAP PO SCH (09:00)
[2019-10-22] MEDS ORDERED: Empagliflozin 25 MG TAB PO SCH (09:00)
[2019-10-22] MEDS ORDERED: Aspirin 81 mg Enteric Coated Tablet PO SCH (09:00)
[2019-10-22] MEDS ORDERED: ERTUGLIFLOZIN PIDOLATE 15 MG PO SCH (09:00)
--- NOTE | 2019-10-22 12:56 | PDOC.EVN ---
Event Note - Event Note Event Note: Patient examined. Hx of CAD, afib, RLE DVT. Presented with chest pressure. Says he pressure resolved as soon as he had good rate control of the afib in the ED. Currently rate is well controlled on home meds. His exam is only notable for BLE 2+ pitting edema. Had recent moderate contusion to left medial knee area with hematoma and reports more edema on the right since. Breathing comfortably, pain free. Trops negative. Supratherapeutic INR. Holding warfarin. Had CT chest with right pleural effusion and pericardial effusion. ECHO pending. Likely not significant effusion and CP was likely related to the poorly controlled afib rate. Pending echo and Cards eval, may be able to DC today.
[2019-10-22 16:24] VITALS: BP 121/88; TEMP 98
--- NOTE | 2019-10-22 17:56 | CON ---
DATE OF CONSULTATION: HISTORY OF PRESENT ILLNESS: The patient is a 63-year-old gentleman with a history of coronary artery disease, who presents with increasing dyspnea, palpitations, and chest discomfort. The patient has a long history of coronary artery disease. He is followed by a journalism teacher in [place]. The patient has a history of recurrent DVTs and is on chronic anticoagulation therapy. The patient had several coronary artery stents placed. He presented with acute onset of palpitation, chest discomfort, and dyspnea. PAST MEDICAL HISTORY: 1. Coronary artery disease. 2. Hypertension. 3. Prostate carcinoma. 4. Diabetes mellitus. PAST SURGICAL HISTORY: He has had coronary angioplasty. ALLERGIES: NO KNOWN DRUG ALLERGIES. SOCIAL HISTORY: Nonsmoker. REVIEW OF SYSTEMS: Ten-point system otherwise unremarkable. MEDICATIONS: 1. Coumadin 2. Protonix 40 daily. 3. Jardiance 25 daily. 4. Steglatro 15 daily. 5.Plavix 75 daily. 6. Cardizem 180 daily. 7. Lipitor 40 nightly. 8. Aspirin 81 daily. 9. Potassium 20 daily. 10. Metoprolol 50 daily. 11. Lasix 40 daily. PHYSICAL EXAMINATION: VITAL SIGNS: Blood pressure 121/88. No evidence of pulsus paradoxus. NECK: There was mild jugular venous distention. LUNGS: Clear to auscultation. HEART: Regular rate and rhythm with a normal S1 and S2. ABDOMEN: Distended. EXTREMITIES: Moderate bilateral edema. LABORATORY DATA: Sodium 136, potassium 4.6, chloride 106, bicarbonate 18, BUN 34, and creatinine 1.2. white blood cell count is 7.2, hemoglobin 13.8, hematocrit 42.5, and his platelets are 370. INR was 4.3. Chest CT revealed no evidence of pulmonary embolus with moderate pericardial effusion and evidence of ascites. Echocardiogram revealed was a technically very limited study with moderate pericardial effusion without evidence of cardiac tamponade. EKG revealed supraventricular tachycardia. Initial EKG revealed supraventricular tachycardia with possible previous septal infarct. IMPRESSION: 1. Supraventricular tachycardia. 2. Moderate pericardial effusion. 3. Over anticoagulation. 4. History of percutaneous transluminal coronary angioplasty and stent placement. 5. Diabetes mellitus. 6. Dyslipidemia. PLAN: This gentleman presented with chest pain and rapid SVT. He has an evidence of a significant pericardial effusion. He is on multiple anticoagulants. From a cardiac standpoint,I would recommend CV Surgery consultation and EP evaluation. The patient is adamant that he does not want to remain in the hospital to undergo further evaluation. He states he will go and see his journalism teacher on Thursday. The patient is aware that there is some risk in him not having further evaluation in the hospital. Agree with discontinue his warfarin. If the patient remains in the hospital,CV Surgery and EP consultation is recommended. Job ID: [id number] MTDD
[2019-10-22] MEDS ORDERED: Atorvastatin Calcium 40 MG TAB PO SCH (21:00)
--- NOTE | 2019-10-22 22:05 | DIS ---
DATE OF ADMISSION: 10/21/2019 DATE OF DISCHARGE: 10/22/2019 DISCHARGE DIAGNOSES: 1. Chest pain. 2. Supraventricular tachycardia. 3. Pericardial effusion. 4. Coronary artery disease. 5. Supratherapeutic INR, on warfarin. 6. Diabetes mellitus. 7. Dyslipidemia. 8. Peripheral edema. 9. Chronic kidney disease, stage 2 to 3. HISTORY: The patient is a 63-year-old male, who has a history of coronary artery disease with angioplasty and stents in 2017, again in 2018, per the patient were in the left anterior descending. Says he has a total of three stents there now. He also has a history of a right lower extremity DVT. He presented to the hospital with shortness of breath which has been present over the past week and significantly worse over three days. Also developed some substernal chest pressure and presented to the emergency department. He was noted to have paroxysmal SVT which subsequently converted to sinus rhythm. Had a CT of the chest, which revealed no PE but did reveal moderate pericardial effusion. HOSPITAL COURSE: The patient was admitted to the hospital. He had serial cardiac isoenzymes which remain negative. He had no further significant SVT. He did have an echocardiogram performed, which revealed technically inadequate exam (the patient had reported that he previously had required a SEVERINO because the surface echo had not been adequate for his personal health advisor). He also had thickened aortic leaflets, dilated IVC, moderate localized pericardial effusion with no evidence of diastolic collapse of the right ventricle or tamponade. The patient was seen in consultation by Cardiology, who felt the patient would benefit from evaluation by Cardiovascular Surgery. Notably, the patient's INR had been supratherapeutic initially at 4.6. It was repeated at 4.3 on the day of discharge. He had reported that with a history of prostate cancer, he had a Lupron injection and that has caused him a great difficulty in maintaining a therapeutic level on his INR and that he had recently increased his dose from 8 to 11 because of a subtherapeutic INR. Tuber Operator was concerned that the patient may have hemopericardium and that there was potential for clotting which could cause some complications. However, the patient was not interested in staying in the facility, possibly due to the concerns for the esteves virus issues and he indicated that he only lived a couple of blocks away from the hospital and would return if he needed to, but otherwise had intended to follow up with Dr. Christian, his personal health advisor in [place], which I believe is an acceptable plan given the patient's wishes. Note the patient did have some peripheral edema on his initial exam and he was given diuresis with some IV Lasix. His ejection fraction is preserved and his BNP was not significantly elevated and it is possible that his peripheral edema is related to his calcium channel miky. The patient's vital signs remained generally stable, although his heart rate did remain in the 90s on the day of discharge. On the day of discharge, temperature was 98, pulse 93-98, respirations 18, O2 saturation 96% on room air, BP 121/88. He was awake and alert, pleasant, cooperative. His heart was regular without murmurs. Lungs were clear. Abdomen was benign. Extremities revealed 1 to 2+ pitting edema of the pretibial space bilaterally. DISPOSITION: He is discharged to home. Again, the patient had full explanation of the concerns regarding the pericardial effusion and the health advisor's recommendation that he stay and be evaluated by Cardiovascular Surgery and potential risk of not doing that; however, the patient has a plan in place to pursue further evaluation for this. Therefore, we will discharge him with that plan in mind. He will be on a heart healthy low-sodium diet. DISCHARGE MEDICATIONS: He will be on 1. Lasix 40 mg p.o. daily. 2. Potassium 20 mEq p.o. daily. 3. We will increase his Toprol-XL to 50 mg daily. 4. He will continue Symbicort 160/4.5 two puffs b.i.d. 5. Fish oil one p.o. b.i.d. 6. Jardiance 25 mg daily. 7. Aspirin 81 mg daily. 8. Pantoprazole 40 mg daily. 9. Atorvastatin 40 mg at bedtime. 10. Metformin 1000 mg b.i.d. 11. Warfarin is to be held. 12. Plavix 75 mg daily. 13. Repaglinide 2 mg p.o. t.i.d. 14. Diltiazem CD 180 mg p.o. daily. 15. Steglatro 15 mg p.o. daily. He is to call Dr. Christian's office on Thursday and follow up there with the next available appointment. He was asked to go through medical records in order to get copies of his CT scan and his echocardiogram to take with him to his followup appointment and again, the patient was encouraged to return to this hospital at any time should he have recurrence of symptoms or progression of symptoms. Time spent in discharge activities: 45 min. Job ID: [id number] MTDD
== END 2019-10-22 19:20 | disposition home or self-care (01) ==
LOC: ERS 13:36 → INTOOBSV 19:45 → 2NO 19:45
PROVIDERS: ADMIT Internal Medicine; ATTEND Internal Medicine
DX: I49.9 Cardiac arrhythmia, unspecified (principal); I31.3 Pericardial effusion (noninflammatory); I48.0 Paroxysmal atrial fibrillation; I25.10 Atherosclerotic heart disease of native coronary artery without angina pectoris; I12.9 Hypertensive chronic kidney disease with stage 1 through stage 4 chronic kidney disease, or unspecified chronic kidney disease; E11.22 Type 2 diabetes mellitus with diabetic chronic kidney disease; N18.3 Chronic kidney disease, stage 3 (moderate); E78.5 Hyperlipidemia, unspecified; I25.2 Old myocardial infarction; E78.00 Pure hypercholesterolemia, unspecified; E03.9 Hypothyroidism, unspecified; Z95.5 Presence of coronary angioplasty implant and graft; Z79.01 Long term (current) use of anticoagulants; Z79.82 Long term (current) use of aspirin; Z79.84 Long term (current) use of oral hypoglycemic drugs; Z79.899 Other long term (current) drug therapy
CPT/HCPCS: 36415; 36416; 71045; 71275; 80048; 80053; 83735; 83880; 84443; 84484; 85025; 85610; 87804; 93005; 93306; 94664; 96374; 96376; G0378; J1940; Q9967

== ENCOUNTER 2020-12-12 00:45 | Inpatient (IN) | payer MEDICARE, OTHER, SELFPAY ==
[2020-12-12 01:35] LABS: INR-International Normal Ratio 2.8; PTT 38.3 sec (22.9-36.1); Prothrombin Time 29.8 sec (12.0-14.7)
[2020-12-12 01:36] LABS: #Eosinphils 0.2 thou/uL (0.0-0.7); #Lymphocytes 0.7 thou/uL (1.20-3.40); #Monocytes 0.7 thou/uL (0.11-0.59); #Neutrophils 3.6 thou/uL (1.40-6.50); %Basophils 0.2 % (0.0-1.0); %Eosinophils 3.6 % (0.0-10.0); %Monocytes 13.4 % (0.0-10.0); %Neutrophils 68.8 % (42.0-75.0); Hemoglobin 11.7 g/dL (14.0-18.0); Mean Corpuscular HGB CONC 32.3 g/dL (32.0-36.0); Mean Corpuscular Hemoglobin 30.1 pg (27.0-31.0); Mean Corpuscular Volume 93.5 fL (78.0-98.0); Mean Platelet Volume 8.1 fL (7.4-10.4); Platelet Count 280 thou/uL (130-400); RBC Distribution Width 16.4 % (11.5-14.5); White Blood Cell (WBC) Count 5.2 thou/uL (4.8-10.8)
[2020-12-12 01:41] LABS: ALT (SGPT) 22 U/L (8-55); AST (SGOT) 36 U/L (5-34); Albumin 3.7 g/dL (3.4-4.8); Anion Gap 17 mmol/L (10-20); BUN (Urea Nitrogen) 29 mg/dL (8.4-25.7); Bilirubin, Total 1.4 mg/dL (0.2-1.2); CK (CPK) 71 U/L (30-200); Calc. Creatinine Clearance 0 mL/min (70-130); Calcium 8.9 mg/dL (7.8-10.44); Carbon Dioxide 23 mmol/L (23-31); Chloride 103 mmol/L (98-107); Glucose 143 mg/dL (80-115); Potassium 3.9 mmol/L (3.5-5.1); Protein, Total 6.7 g/dL (5.8-8.1); Sodium 139 mmol/L (136-145)
[2020-12-12 01:55] LABS: Alkaline Phosphatase 181 U/L (40-110)
[2020-12-12] MEDS ORDERED: Boostrix 0.5 ML (Tdap) VIAL ONE (03:30)
[2020-12-12] MEDS ORDERED: Fentanyl 100 MCG/2 ML VIAL ONE (03:30)
[2020-12-12] MEDS ORDERED: Ondansetron PF 4 MG/2 ML Vial IVP PRN (06:22)
[2020-12-12] MEDS ORDERED: Cyclobenzaprine 10 MG TAB PO PRN (06:22)
[2020-12-12] MEDS ORDERED: traMADol HCl 50 MG TAB PO PRN (06:22)
[2020-12-12] MEDS ORDERED: Dextrose 5% in Water 1,000 ML IV PRN (06:22)
[2020-12-12] MEDS ORDERED: Dextrose 50% Abboject 50 ML SYRINGE SLOW IVP PRN (06:22)
[2020-12-12] MEDS ORDERED: hydrALAZINE 20 MG/ML VIAL SLOW IVP PRN (06:22)
[2020-12-12] MEDS ORDERED: Ondansetron ODT 4 MG TAB PO PRN (06:22)
[2020-12-12] MEDS ORDERED: Sodium Chloride 0.9% 1,000 ML IV SCH ×2 (06:22→07:13)
[2020-12-12 06:28] VITALS: BMI 30.8
[2020-12-12] MEDS ORDERED: traMADol HCl 50 MG TAB ONE (06:34)
[2020-12-12] MEDS ORDERED: Acetaminophen 500 MG TAB ONE (06:34)
[2020-12-12] MEDS: Acetaminophen 500 MG TAB PO SCH ×3 (06:37→18:27)
[2020-12-12 08:03] LABS: INR-International Normal Ratio 2.3; PTT 37.9 sec (22.9-36.1); Phosphorus 3.2 mg/dL (2.3-4.7); Prothrombin Time 25.6 sec (12.0-14.7)
[2020-12-12 08:07] LABS: Anion Gap 14 mmol/L (10-20); BUN (Urea Nitrogen) 29 mg/dL (8.4-25.7); Calc. Creatinine Clearance 90 mL/min (70-130); Calcium 8.9 mg/dL (7.8-10.44); Carbon Dioxide 24 mmol/L (23-31); Chloride 104 mmol/L (98-107); Glucose 120 mg/dL (80-115); Sodium 138 mmol/L (136-145)
[2020-12-12] MEDS ORDERED: Famotidine/PF 20 mg/2ml Vial ONE (09:23)
[2020-12-12] MEDS: Famotidine/PF 20 mg/2ml Vial SLOW IVP SCH ×2 (09:31→21:12)
[2020-12-12] MEDS ORDERED: Iopamidol-370 76% 500 ML 1 ML ONE ×2 (10:05→10:08)
[2020-12-12] MEDS ORDERED: HumaLOG 300 UNITS/3 ML VIAL SC PRN ×2 (19:33)
[2020-12-12] MEDS ORDERED: Atorvastatin Calcium 40 MG TAB PO SCH (21:00)
[2020-12-13] MEDS: Acetaminophen 500 MG TAB PO SCH ×3 (00:32→11:23)
[2020-12-13] MEDS: Furosemide 40 MG TAB PO SCH ×3 (00:33→11:23)
[2020-12-13 05:16] LABS: #Eosinphils 0.2 thou/uL (0.0-0.7); #Lymphocytes 0.8 thou/uL (1.20-3.40); #Monocytes 0.6 thou/uL (0.11-0.59); #Neutrophils 2.8 thou/uL (1.40-6.50); %Basophils 0.7 % (0.0-1.0); %Eosinophils 3.7 % (0.0-10.0); %Lymphocytes 17.6 % (21.0-51.0); %Monocytes 13.8 % (0.0-10.0); %Neutrophils 64.2 % (42.0-75.0); Hemoglobin 11.2 g/dL (14.0-18.0); Mean Corpuscular HGB CONC 31.2 g/dL (32.0-36.0); Mean Corpuscular Hemoglobin 29.8 pg (27.0-31.0); Mean Corpuscular Volume 95.4 fL (78.0-98.0); Mean Platelet Volume 7.7 fL (7.4-10.4); Platelet Count 327 thou/uL (130-400); RBC Distribution Width 16.4 % (11.5-14.5); Red Blood Cell (RBC) Count 3.76 mill/uL (4.70-6.10); White Blood Cell (WBC) Count 4.4 thou/uL (4.8-10.8)
[2020-12-13 05:27] LABS: INR-International Normal Ratio 1.7; PTT 35.2 sec (22.9-36.1)
[2020-12-13 05:39] LABS: Anion Gap 14 mmol/L (10-20); BUN (Urea Nitrogen) 23 mg/dL (8.4-25.7); Calc. Creatinine Clearance 93 mL/min (70-130); Carbon Dioxide 25 mmol/L (23-31); Chloride 105 mmol/L (98-107); Glucose 123 mg/dL (80-115); Potassium 3.7 mmol/L (3.5-5.1); Sodium 140 mmol/L (136-145)
[2020-12-13] MEDS ORDERED: Mometasone 200 MCG/Formoterol 5 MCG 120 PUFF INHALER INH SCH (06:30)
[2020-12-13] MEDS: Famotidine/PF 20 mg/2ml Vial SLOW IVP SCH (08:34)
[2020-12-13] MEDS ORDERED: Potassium Chloride 20 MEQ TAB PO SCH (09:00)
[2020-12-13 15:21] VITALS: BP 107/73; TEMP 97
== END 2020-12-13 17:48 | DRG 964 ==
LOC: ERS 00:45 → ERHOLD 04:02 → SURG B 17:22
PROVIDERS: ADMIT Surgery; ATTEND Surgery
DX: S06.349A Traumatic hemorrhage of right cerebrum with loss of consciousness of unspecified duration, initial encounter (principal); S36.039A Unspecified laceration of spleen, initial encounter; N17.9 Acute kidney failure, unspecified; I48.91 Unspecified atrial fibrillation; W18.30XA Fall on same level, unspecified, initial encounter; Z20.822 Contact with and (suspected) exposure to COVID-19; N40.0 Benign prostatic hyperplasia without lower urinary tract symptoms; E11.9 Type 2 diabetes mellitus without complications; S02.31XA Fracture of orbital floor, right side, initial encounter for closed fracture; S02.40CA Maxillary fracture, right side, initial encounter for closed fracture; I25.10 Atherosclerotic heart disease of native coronary artery without angina pectoris; R40.2362 Coma scale, best motor response, obeys commands, at arrival to emergency department; R40.2142 Coma scale, eyes open, spontaneous, at arrival to emergency department; R40.2252 Coma scale, best verbal response, oriented, at arrival to emergency department; Z86.718 Personal history of other venous thrombosis and embolism; Z85.46 Personal history of malignant neoplasm of prostate; Z95.5 Presence of coronary angioplasty implant and graft; Z98.890 Other specified postprocedural states; Z79.01 Long term (current) use of anticoagulants; Z79.84 Long term (current) use of oral hypoglycemic drugs; Z79.899 Other long term (current) drug therapy; I25.2 Old myocardial infarction
CPT/HCPCS: 36415; 36416; 70450; 70486; 70496; 70498; 71045; 71260; 72125; 74177; 80048; 80053; 82550; 83735; 84100; 84484; 85025; 85610; 85730; 90471; 90715; 93005; 96374; J1815; J2405; J3010; Q9967; S0028

== ENCOUNTER 2021-01-07 09:59 | Outpatient (CLI) | payer MEDICARE, OTHER | END 2021-01-07 10:00 | disposition home or self-care (01) | LOC: BICCT 09:59 | PROVIDERS: ATTEND Physician Assistant | DX: I61.9 Nontraumatic intracerebral hemorrhage, unspecified (principal) | CPT/HCPCS: 70450 ==

== ENCOUNTER 2022-12-16 18:03 | Emergency (ER) | payer MEDICARE ==
[2022-12-16 19:24] LABS: #Eosinphils 0.1 thou/uL (0.0-0.7); #Monocytes 1.1 thou/uL (0.11-0.59); #Neutrophils 7.1 thou/uL (1.40-6.50); %Basophils 0.3 % (0.0-1.0); %Lymphocytes 9.5 % (21.0-51.0); %Monocytes 11.7 % (0.0-10.0); Hemoglobin 15.6 g/dL (14.0-18.0); Mean Corpuscular HGB CONC 33.4 g/dL (32.0-36.0); Mean Corpuscular Hemoglobin 29.7 pg (27.0-31.0); Mean Platelet Volume 9.5 fL (7.4-10.4); Platelet Count 213 10x3/uL (130-400); RBC Distribution Width 15.4 % (11.5-14.5); Red Blood Cell (RBC) Count 5.25 mill/uL (4.70-6.10); White Blood Cell (WBC) Count 9.2 10x3/uL (4.8-10.8)
[2022-12-16 19:47] LABS: ALT (SGPT) 25 U/L (8-55); AST (SGOT) 33 U/L (5-34); Albumin 3.9 g/dL (3.4-4.8); Alkaline Phosphatase 171 U/L (40-110); Anion Gap 16 mmol/L (10-20); BUN (Urea Nitrogen) 43 mg/dL (8.4-25.7); Bilirubin, Total 1.1 mg/dL (0.2-1.2); Calc. Creatinine Clearance 0 mL/min (70-130); Calcium 9.6 mg/dL (7.8-10.44); Carbon Dioxide 30 mmol/L (23-31); Chloride 93 mmol/L (98-107); Estimated GFR 43; Globulin 4.2 g/dL (2.4-3.5); Glucose 96 mg/dL (80-115); Potassium 3.5 mmol/L (3.5-5.1); Protein, Total 8.1 g/dL (5.8-8.1); Sodium 135 mmol/L (136-145)
[2022-12-16 21:34] LABS: SARS-CoV-2 NAA Rapid Test Not Detected (NotDetected)
== END 2022-12-16 21:50 | disposition home or self-care (01) ==
LOC: ERS 18:03
DX: J18.9 Pneumonia, unspecified organism (principal); I11.0 Hypertensive heart disease with heart failure; I50.9 Heart failure, unspecified; E11.9 Type 2 diabetes mellitus without complications; Z79.899 Other long term (current) drug therapy; Z79.84 Long term (current) use of oral hypoglycemic drugs
CPT/HCPCS: 0240U; 71045; 71275; 80053; 83880; 84484; 85025; 93005; Q9967

== ENCOUNTER 2024-08-10 06:03 | Day surgery (SDC) | payer MEDICARE, OTHER ==
[2024-08-09 13:19] VITALS: BMI 26.6
[2024-08-10] MEDS ORDERED: PROPOFOL 60 ML ONE (07:12)
[2024-08-10] MEDS ORDERED: Lidocaine 2% PF 5 ML VIAL ONE (07:17)
[2024-08-10] MEDS ORDERED: PHENYLEPHRINE-NS 100 MCG/ML 10 ML SYRINGE ONE (08:04)
[2024-08-10] MEDS ORDERED: Simethicone 40 MG/0.6 ML Drop 30 ML BOT ONE (08:08)
[2024-08-10] MEDS ORDERED: Sodium Chloride 0.9% 250 ML 250 ML ONE (08:13)
[2024-08-10] MEDS ORDERED: ePHEDrine Sulfate 50 MG/10 ML VIAL ONE (08:18)
[2024-08-10] MEDS ORDERED: PROPOFOL 20 ML ONE (08:29)
== END 2024-08-10 09:55 | disposition home or self-care (01) ==
LOC: SDC 06:03
PROVIDERS: ATTEND Internal Medicine
PROC: 0DBK8ZZ Excision of Ascending Colon, Via Natural or Artificial Opening Endoscopic (ICD-10-PCS; principal; 2024-08-10)
PROC: 0DBL8ZZ Excision of Transverse Colon, Via Natural or Artificial Opening Endoscopic (ICD-10-PCS; 2024-08-10)
PROC: 0DBN8ZZ Excision of Sigmoid Colon, Via Natural or Artificial Opening Endoscopic (ICD-10-PCS; 2024-08-10)
PROC: 0DBP8ZZ Excision of Rectum, Via Natural or Artificial Opening Endoscopic (ICD-10-PCS; 2024-08-10)
PROC: 0DBH8ZZ Excision of Cecum, Via Natural or Artificial Opening Endoscopic (ICD-10-PCS; 2024-08-10)
DX: Z12.11 Encounter for screening for malignant neoplasm of colon (principal); R19.5 Other fecal abnormalities; D12.7 Benign neoplasm of rectosigmoid junction; D12.2 Benign neoplasm of ascending colon; D12.0 Benign neoplasm of cecum; D12.5 Benign neoplasm of sigmoid colon; D12.3 Benign neoplasm of transverse colon; I25.10 Atherosclerotic heart disease of native coronary artery without angina pectoris; I48.91 Unspecified atrial fibrillation; I13.0 Hypertensive heart and chronic kidney disease with heart failure and stage 1 through stage 4 chronic kidney disease, or unspecified chronic kidney disease; I50.9 Heart failure, unspecified; N18.9 Chronic kidney disease, unspecified; E11.22 Type 2 diabetes mellitus with diabetic chronic kidney disease; E78.00 Pure hypercholesterolemia, unspecified; Z85.46 Personal history of malignant neoplasm of prostate; Z95.5 Presence of coronary angioplasty implant and graft; Z87.891 Personal history of nicotine dependence; Z79.01 Long term (current) use of anticoagulants; Z79.84 Long term (current) use of oral hypoglycemic drugs; Z79.899 Other long term (current) drug therapy
CPT/HCPCS: 45385; J2704; J7050; 88305

== ENCOUNTER 2025-04-14 08:30 | Emergency (ER) | payer MEDICARE, OTHER ==
[2025-04-14 09:25] LABS: #Basophils Less than 0.03 10x3/uL (0.0-0.2); #Eosinophils 0.10 10x3/uL (0.0-0.7); #Monocytes 0.84 10x3/uL (0.11-0.59); #Neutrophils 4.91 10x3/uL (1.40-6.50); %Basophils 0.3 % (0.0-1.0); %Eosinophils 1.5 % (0.0-10.0); %Lymphocytes 11.0 % (21.0-51.0); %Monocytes 12.7 % (0.0-10.0); %Neutrophils 74.0 % (42.0-75.0); Hematocrit 43.5 % (42.0-52.0); Hemoglobin 15.3 g/dL (14.0-18.0); Mean Corpuscular Hemoglobin 31.0 pg (27.0-31.0); Mean Corpuscular Volume 88.1 fL (78.0-98.0); Platelet Count 216 10x3/uL (130-400); Red Blood Cell (RBC) Count 4.94 mill/uL (4.70-6.10); White Blood Cell (WBC) Count 6.63 10x3/uL (4.8-10.8)
[2025-04-14 09:55] LABS: ALT (SGPT) 17 U/L (Less than 45); AST (SGOT) 23 U/L (11-34); Albumin 3.0 g/dL (3.1-4.5); Alkaline Phosphatase 117 U/L (40-110); Anion Gap 17 mmol/L (10-20); BUN (Urea Nitrogen) 45 mg/dL (8.4-25.7); Bilirubin, Total 1.1 mg/dL (0.3-1.2); Calc. Creatinine Clearance 0 mL/min (70-130); Calcium 8.9 mg/dL (7.8-10.44); Carbon Dioxide 24 mmol/L (23-31); Chloride 90 mmol/L (98-107); Globulin 4.5 g/dL (2.4-3.5); Glucose 417 mg/dL (80-115); Potassium 2.9 mmol/L (3.5-5.1); Sodium 128 mmol/L (136-145)
== END 2025-04-14 12:15 | disposition home or self-care (01) ==
LOC: ERS 08:30
DX: L03.115 Cellulitis of right lower limb (principal); E87.6 Hypokalemia; E87.1 Hypo-osmolality and hyponatremia; E11.9 Type 2 diabetes mellitus without complications; I48.91 Unspecified atrial fibrillation; I25.2 Old myocardial infarction; I11.0 Hypertensive heart disease with heart failure; I50.9 Heart failure, unspecified; Z79.01 Long term (current) use of anticoagulants; Z79.899 Other long term (current) drug therapy
CPT/HCPCS: 36415; 80053; 83605; 83880; 85025; 87040; 93005

== ENCOUNTER 2025-04-17 11:59 | Inpatient (IN) | payer MEDICARE, OTHER ==
[2025-04-17 14:03] LABS: #Basophils 0.03 10x3/uL (0.0-0.2); #Eosinophils 0.10 10x3/uL (0.0-0.7); #Monocytes 0.62 10x3/uL (0.11-0.59); #Neutrophils 5.18 10x3/uL (1.40-6.50); %Basophils 0.4 % (0.0-1.0); %Eosinophils 1.5 % (0.0-10.0); %Lymphocytes 11.8 % (21.0-51.0); %Monocytes 9.2 % (0.0-10.0); %Neutrophils 76.5 % (42.0-75.0); Hematocrit 43.9 % (42.0-52.0); Hemoglobin 15.1 g/dL (14.0-18.0); Mean Corpuscular Hemoglobin 30.8 pg (27.0-31.0); Mean Corpuscular Volume 89.6 fL (78.0-98.0); Platelet Count 314 10x3/uL (130-400); Red Blood Cell (RBC) Count 4.90 mill/uL (4.70-6.10); White Blood Cell (WBC) Count 6.77 10x3/uL (4.8-10.8)
[2025-04-17 14:20] LABS: ALT (SGPT) 24 U/L (Less than 45); AST (SGOT) 39 U/L (11-34); Albumin 3.2 g/dL (3.1-4.5); Alkaline Phosphatase 154 U/L (40-110); Anion Gap 17 mmol/L (10-20); BUN (Urea Nitrogen) 41 mg/dL (8.4-25.7); Bilirubin, Total 0.7 mg/dL (0.3-1.2); Calc. Creatinine Clearance 0 mL/min (70-130); Calcium 9.5 mg/dL (7.8-10.44); Carbon Dioxide 27 mmol/L (23-31); Chloride 95 mmol/L (98-107); Globulin 4.6 g/dL (2.4-3.5); Glucose 272 mg/dL (80-115); Potassium 3.3 mmol/L (3.5-5.1); Sodium 136 mmol/L (136-145)
[2025-04-17] MEDS ORDERED: Cefepime 2 GM VIAL ONE (16:21)
[2025-04-17] MEDS ORDERED: VANCOMYCIN 2 GRAM/400 ML BAG ONE (16:22)
[2025-04-17] MEDS ORDERED: Glucagon 1 MG/ML KIT IM PRN (16:44)
[2025-04-17] MEDS ORDERED: Dextrose 50% Abboject 50 ML SYRINGE SLOW IVP PRN (16:44)
[2025-04-17] MEDS ORDERED: Ondansetron PF 4 MG/2 ML Vial IVP PRN (16:44)
[2025-04-17] MEDS ORDERED: Vancomycin 1 GM in Premix 1 BAG IVPB SCH (21:00)
[2025-04-17 21:14] VITALS: BMI 28.4
[2025-04-18 05:58] LABS: Vancomycin, Random 19.8 ug/mL (See Comment)
[2025-04-18 05:59] LABS: Anion Gap 14 mmol/L (10-20); BUN (Urea Nitrogen) 38 mg/dL (8.4-25.7); Calc. Creatinine Clearance 54 mL/min (70-130); Calcium 8.3 mg/dL (7.8-10.44); Carbon Dioxide 27 mmol/L (23-31); Chloride 101 mmol/L (98-107); Glucose 131 mg/dL (80-115); Potassium 3.3 mmol/L (3.5-5.1); Sodium 139 mmol/L (136-145)
[2025-04-18] MEDS ORDERED: Bupivacaine 0.25% HCL 30 ML VIAL ONE (09:17)
[2025-04-18] MEDS: Pantoprazole 40 MG DR.TAB PO SCH (09:51)
[2025-04-18] MEDS ORDERED: fentaNYL PF 100 MCG/2 ML SYRINGE ONE (09:54)
[2025-04-18] MEDS ORDERED: PROPOFOL 20 ML ONE (09:54)
[2025-04-18] MEDS ORDERED: Vancomycin 1.25 GM / NS 250 ML VIAL-2-BAG IVPB SCH (17:00)
[2025-04-18] MEDS: Insulin Glargine 30 UNITS/0.3 ML VIAL SC SCH (17:27)
[2025-04-18] MEDS: cefTRIAXone\\ROCEPHIN 2 GM in Sodium Chloride 0.9% 100 ML IVPB SCH (17:28)
[2025-04-18] MEDS: Mometasone 200 MCG/Formoterol 5 MCG 120 PUFF INHALER INH SCH (19:47)
[2025-04-18] MEDS: Furosemide 40 MG TAB PO SCH (20:43)
[2025-04-19 05:55] LABS: #Basophils 0.04 10x3/uL (0.0-0.2); #Eosinophils 0.17 10x3/uL (0.0-0.7); #Monocytes 0.42 10x3/uL (0.11-0.59); #Neutrophils 2.79 10x3/uL (1.40-6.50); %Basophils 1.0 % (0.0-1.0); %Eosinophils 4.0 % (0.0-10.0); %Lymphocytes 18.1 % (21.0-51.0); %Monocytes 10.0 % (0.0-10.0); %Neutrophils 66.2 % (42.0-75.0); Hematocrit 43.4 % (42.0-52.0); Hemoglobin 14.3 g/dL (14.0-18.0); Mean Corpuscular Hemoglobin 30.4 pg (27.0-31.0); Mean Corpuscular Volume 92.3 fL (78.0-98.0); Platelet Count 293 10x3/uL (130-400); Red Blood Cell (RBC) Count 4.70 mill/uL (4.70-6.10); White Blood Cell (WBC) Count 4.21 10x3/uL (4.8-10.8)
[2025-04-19 06:11] LABS: Anion Gap 14 mmol/L (10-20); BUN (Urea Nitrogen) 29 mg/dL (8.4-25.7); Calc. Creatinine Clearance 68 mL/min (70-130); Calcium 9.0 mg/dL (7.8-10.44); Carbon Dioxide 22 mmol/L (23-31); Chloride 103 mmol/L (98-107); Glucose 132 mg/dL (80-115); Potassium 3.4 mmol/L (3.5-5.1); Sodium 136 mmol/L (136-145)
[2025-04-19 06:16] LABS: Vancomycin, Random 15.0 ug/mL (See Comment)
[2025-04-19] MEDS: Multivit, Therapeutic 1 TAB PO SCH (08:57)
[2025-04-19] MEDS: Insulin Glargine 30 UNITS/0.3 ML VIAL SC SCH (08:57)
[2025-04-19] MEDS: Metoprolol Succinate XL 25 MG ER.TAB PO SCH (08:57)
[2025-04-19 11:09] VITALS: BMI 28.4
[2025-04-19] MEDS: Vancomycin 1.25 GM / NS 250 ML VIAL-2-BAG IVPB SCH (12:02)
[2025-04-19] MEDS: Acetaminophen 325 MG TAB PO PRN (21:25)
[2025-04-20 05:42] LABS: #Basophils 0.04 10x3/uL (0.0-0.2); #Eosinophils 0.18 10x3/uL (0.0-0.7); #Monocytes 0.59 10x3/uL (0.11-0.59); #Neutrophils 2.47 10x3/uL (1.40-6.50); %Basophils 1.0 % (0.0-1.0); %Eosinophils 4.3 % (0.0-10.0); %Lymphocytes 20.2 % (21.0-51.0); %Monocytes 14.2 % (0.0-10.0); %Neutrophils 59.3 % (42.0-75.0); Hematocrit 41.2 % (42.0-52.0); Hemoglobin 13.8 g/dL (14.0-18.0); Mean Corpuscular Hemoglobin 30.7 pg (27.0-31.0); Mean Corpuscular Volume 91.6 fL (78.0-98.0); Platelet Count 271 10x3/uL (130-400); Red Blood Cell (RBC) Count 4.50 mill/uL (4.70-6.10); White Blood Cell (WBC) Count 4.16 10x3/uL (4.8-10.8)
[2025-04-20 05:55] LABS: Anion Gap 14 mmol/L (10-20); BUN (Urea Nitrogen) 36 mg/dL (8.4-25.7); Calc. Creatinine Clearance 60 mL/min (70-130); Calcium 9.0 mg/dL (7.8-10.44); Carbon Dioxide 26 mmol/L (23-31); Chloride 102 mmol/L (98-107); Glucose 152 mg/dL (80-115); Potassium 3.2 mmol/L (3.5-5.1); Sodium 139 mmol/L (136-145)
[2025-04-21 05:55] LABS: #Basophils 0.04 10x3/uL (0.0-0.2); #Eosinophils 0.16 10x3/uL (0.0-0.7); #Monocytes 0.52 10x3/uL (0.11-0.59); #Neutrophils 2.67 10x3/uL (1.40-6.50); %Basophils 0.9 % (0.0-1.0); %Eosinophils 3.7 % (0.0-10.0); %Lymphocytes 19.0 % (21.0-51.0); %Monocytes 12.2 % (0.0-10.0); %Neutrophils 62.6 % (42.0-75.0); Hematocrit 43.6 % (42.0-52.0); Hemoglobin 14.7 g/dL (14.0-18.0); Mean Corpuscular Hemoglobin 31.0 pg (27.0-31.0); Mean Corpuscular Volume 92.0 fL (78.0-98.0); Platelet Count 301 10x3/uL (130-400); Red Blood Cell (RBC) Count 4.74 mill/uL (4.70-6.10); White Blood Cell (WBC) Count 4.27 10x3/uL (4.8-10.8)
[2025-04-21 06:10] LABS: Vancomycin, Random 23.5 ug/mL (See Comment)
[2025-04-21 06:11] LABS: Anion Gap 14 mmol/L (10-20); BUN (Urea Nitrogen) 44 mg/dL (8.4-25.7); Calc. Creatinine Clearance 63 mL/min (70-130); Calcium 9.5 mg/dL (7.8-10.44); Carbon Dioxide 24 mmol/L (23-31); Chloride 102 mmol/L (98-107); Glucose 188 mg/dL (80-115); Potassium 3.4 mmol/L (3.5-5.1); Sodium 137 mmol/L (136-145)
[2025-04-21] MEDS: Insulin Glargine 30 UNITS/0.3 ML VIAL SC SCH (08:54)
[2025-04-21] MEDS: Magnesium 2 GM/50 ML(in water) 2 GM in Premix 1 BAG IVPB SCH (08:54)
[2025-04-21] MEDS: Vancomycin 1 GM in Premix 1 BAG IVPB SCH (14:09)
[2025-04-22 06:25] LABS: #Basophils 0.03 10x3/uL (0.0-0.2); #Eosinophils 0.17 10x3/uL (0.0-0.7); #Monocytes 0.64 10x3/uL (0.11-0.59); #Neutrophils 3.49 10x3/uL (1.40-6.50); %Basophils 0.6 % (0.0-1.0); %Eosinophils 3.3 % (0.0-10.0); %Lymphocytes 15.7 % (21.0-51.0); %Monocytes 12.4 % (0.0-10.0); %Neutrophils 67.4 % (42.0-75.0); Hematocrit 42.6 % (42.0-52.0); Hemoglobin 14.3 g/dL (14.0-18.0); Mean Corpuscular Hemoglobin 31.2 pg (27.0-31.0); Mean Corpuscular Volume 92.8 fL (78.0-98.0); Platelet Count 299 10x3/uL (130-400); Red Blood Cell (RBC) Count 4.59 mill/uL (4.70-6.10); White Blood Cell (WBC) Count 5.17 10x3/uL (4.8-10.8)
[2025-04-22 06:48] LABS: Anion Gap 15 mmol/L (10-20); BUN (Urea Nitrogen) 56 mg/dL (8.4-25.7); Calc. Creatinine Clearance 64 mL/min (70-130); Calcium 9.2 mg/dL (7.8-10.44); Carbon Dioxide 28 mmol/L (23-31); Chloride 100 mmol/L (98-107); Glucose 193 mg/dL (80-115); Potassium 3.8 mmol/L (3.5-5.1); Sodium 139 mmol/L (136-145)
[2025-04-22] MEDS: Insulin Glargine 30 UNITS/0.3 ML VIAL SC SCH (11:53)
[2025-04-22] MEDS: Apixaban 5 MG TAB PO SCH (21:04)
[2025-04-23 06:26] LABS: #Basophils 0.04 10x3/uL (0.0-0.2); #Eosinophils 0.18 10x3/uL (0.0-0.7); #Monocytes 0.55 10x3/uL (0.11-0.59); #Neutrophils 2.92 10x3/uL (1.40-6.50); %Basophils 0.9 % (0.0-1.0); %Eosinophils 4.0 % (0.0-10.0); %Lymphocytes 17.3 % (21.0-51.0); %Monocytes 12.2 % (0.0-10.0); %Neutrophils 64.9 % (42.0-75.0); Hematocrit 43.6 % (42.0-52.0); Hemoglobin 14.2 g/dL (14.0-18.0); Mean Corpuscular Hemoglobin 30.8 pg (27.0-31.0); Mean Corpuscular Volume 94.6 fL (78.0-98.0); Platelet Count 314 10x3/uL (130-400); Red Blood Cell (RBC) Count 4.61 mill/uL (4.70-6.10); White Blood Cell (WBC) Count 4.50 10x3/uL (4.8-10.8)
[2025-04-23 06:47] LABS: Vancomycin, Random 22.0 ug/mL (See Comment)
[2025-04-23 06:49] LABS: Anion Gap 12 mmol/L (10-20); BUN (Urea Nitrogen) 59 mg/dL (8.4-25.7); Calc. Creatinine Clearance 61 mL/min (70-130); Calcium 9.2 mg/dL (7.8-10.44); Carbon Dioxide 28 mmol/L (23-31); Chloride 100 mmol/L (98-107); Glucose 160 mg/dL (80-115); Potassium 3.7 mmol/L (3.5-5.1); Sodium 136 mmol/L (136-145)
[2025-04-23] MEDS: Aspirin 81 mg Enteric Coated Tablet PO SCH (09:23)
[2025-04-23] MEDS: Insulin Glargine 30 UNITS/0.3 ML VIAL SC SCH (09:24)
[2025-04-23] MEDS: Vancomycin HCl 750 MG in Sodium Chloride 0.9% 250 ML 250 ML IVPB SCH (12:36)
[2025-04-24 06:48] LABS: Anion Gap 13 mmol/L (10-20); BUN (Urea Nitrogen) 60 mg/dL (8.4-25.7); Calc. Creatinine Clearance 75 mL/min (70-130); Calcium 9.1 mg/dL (7.8-10.44); Carbon Dioxide 23 mmol/L (23-31); Chloride 104 mmol/L (98-107); Glucose 155 mg/dL (80-115); Potassium 4.0 mmol/L (3.5-5.1); Sodium 136 mmol/L (136-145)
[2025-04-24] MEDS: Vancomycin 1 GM in Premix 1 BAG IVPB SCH (13:01)
[2025-04-24] MEDS: metroNIDAZOLE 500 MG TAB PO SCH (15:35)
[2025-04-24] MEDS: Mometasone 200 MCG/Formoterol 5 MCG 120 PUFF INHALER INH SCH (18:59)
[2025-04-25 04:55] LABS: #Basophils 0.04 10x3/uL (0.0-0.2); #Eosinophils 0.15 10x3/uL (0.0-0.7); #Monocytes 0.65 10x3/uL (0.11-0.59); #Neutrophils 4.06 10x3/uL (1.40-6.50); %Basophils 0.7 % (0.0-1.0); %Eosinophils 2.6 % (0.0-10.0); %Lymphocytes 14.4 % (21.0-51.0); %Monocytes 11.3 % (0.0-10.0); %Neutrophils 70.5 % (42.0-75.0); Hematocrit 41.1 % (42.0-52.0); Hemoglobin 13.7 g/dL (14.0-18.0); Mean Corpuscular Hemoglobin 30.9 pg (27.0-31.0); Mean Corpuscular Volume 92.8 fL (78.0-98.0); Platelet Count 291 10x3/uL (130-400); Red Blood Cell (RBC) Count 4.43 mill/uL (4.70-6.10); White Blood Cell (WBC) Count 5.76 10x3/uL (4.8-10.8)
[2025-04-25 05:24] LABS: Anion Gap 13 mmol/L (10-20); BUN (Urea Nitrogen) 60 mg/dL (8.4-25.7); Calc. Creatinine Clearance 74 mL/min (70-130); Calcium 9.0 mg/dL (7.8-10.44); Carbon Dioxide 24 mmol/L (23-31); Chloride 103 mmol/L (98-107); Glucose 172 mg/dL (80-115); Potassium 3.9 mmol/L (3.5-5.1); Sodium 136 mmol/L (136-145)
[2025-04-25 05:32] LABS: Vancomycin, Random 17.9 ug/mL (See Comment)
[2025-04-25] MEDS ORDERED: Lidocaine 1% PF 5 ML VIAL ONE (06:55)
[2025-04-25] MEDS ORDERED: Sodium Bicarbonate 2.5 MEQ/5 ML SDV ONE (06:56)
[2025-04-26 05:43] LABS: Anion Gap 16 mmol/L (10-20); BUN (Urea Nitrogen) 56 mg/dL (8.4-25.7); Calc. Creatinine Clearance 71 mL/min (70-130); Calcium 9.0 mg/dL (7.8-10.44); Carbon Dioxide 22 mmol/L (23-31); Chloride 103 mmol/L (98-107); Glucose 151 mg/dL (80-115); Potassium 3.5 mmol/L (3.5-5.1); Sodium 137 mmol/L (136-145)
[2025-04-27 06:29] LABS: Vancomycin, Random 18.8 ug/mL (See Comment)
[2025-04-27 06:30] LABS: Anion Gap 14 mmol/L (10-20); BUN (Urea Nitrogen) 57 mg/dL (8.4-25.7); Calc. Creatinine Clearance 69 mL/min (70-130); Calcium 8.9 mg/dL (7.8-10.44); Carbon Dioxide 25 mmol/L (23-31); Chloride 106 mmol/L (98-107); Glucose 144 mg/dL (80-115); Potassium 3.6 mmol/L (3.5-5.1); Sodium 141 mmol/L (136-145)
[2025-04-27 16:15] VITALS: BP 101/63; TEMP 97.4
== END 2025-04-27 18:32 | disposition home health service (06) | DRG 240 ==
LOC: ERS 11:59 → SURG B 16:11
PROVIDERS: ADMIT Family Medicine; ATTEND Internal Medicine
PROC: 0Y6M0ZF Detachment at Right Foot, Partial 5th Ray, Open Approach (ICD-10-PCS; principal; 2025-04-18)
PROC: 3E03329 Introduction of Other Anti-infective into Peripheral Vein, Percutaneous Approach (ICD-10-PCS; 2025-04-18)
PROC: 02HV33Z Insertion of Infusion Device into Superior Vena Cava, Percutaneous Approach (ICD-10-PCS; 2025-04-25)
PROC: B5181ZA Fluoroscopy of Superior Vena Cava using Low Osmolar Contrast, Guidance (ICD-10-PCS; 2025-04-25)
PROC: 3E04329 Introduction of Other Anti-infective into Central Vein, Percutaneous Approach (ICD-10-PCS; 2025-04-25)
DX: E11.52 Type 2 diabetes mellitus with diabetic peripheral angiopathy with gangrene (principal); I48.20 Chronic atrial fibrillation, unspecified; I96 Gangrene, not elsewhere classified; L03.115 Cellulitis of right lower limb; N17.9 Acute kidney failure, unspecified; N18.30 Chronic kidney disease, stage 3 unspecified; E11.621 Type 2 diabetes mellitus with foot ulcer; L97.519 Non-pressure chronic ulcer of other part of right foot with unspecified severity; I50.9 Heart failure, unspecified; I11.0 Hypertensive heart disease with heart failure; S92.591A Other fracture of right lesser toe(s), initial encounter for closed fracture; I25.10 Atherosclerotic heart disease of native coronary artery without angina pectoris; E87.6 Hypokalemia; E78.5 Hyperlipidemia, unspecified; F10.90 Alcohol use, unspecified, uncomplicated; Z79.01 Long term (current) use of anticoagulants; I25.2 Old myocardial infarction; Z95.5 Presence of coronary angioplasty implant and graft; Z85.46 Personal history of malignant neoplasm of prostate; Z95.828 Presence of other vascular implants and grafts; Z87.891 Personal history of nicotine dependence; Z98.890 Other specified postprocedural states; Z79.84 Long term (current) use of oral hypoglycemic drugs; Z79.4 Long term (current) use of insulin
CPT/HCPCS: 36415; 36416; 36573; 80048; 80053; 80202; 83036; 83605; 83880; 85025; 87040; 87070; 87076; 87077; 87186; 87205; 88305; 88311; 93005; 94664; 96374; 96375; 97139; C1751; J0665; J0692; J0696; J1650; J1815; J2704; J3373; J3375; J3475; J7030; J7050

== ENCOUNTER 2025-05-09 08:51 | Outpatient (CLI) | payer MEDICARE, OTHER | END 2025-05-09 08:52 | disposition home or self-care (01) | LOC: RAD 08:51 | PROVIDERS: ATTEND Internal Medicine Critical Care Medicine | DX: R06.00 Dyspnea, unspecified (principal); L92.9 Granulomatous disorder of the skin and subcutaneous tissue, unspecified; J98.4 Other disorders of lung; Z95.9 Presence of cardiac and vascular implant and graft, unspecified | CPT/HCPCS: 71046 ==